=== PATIENT | female | born 1990 | race Caucasian/White ===

== ENCOUNTER 2016-03-07 10:38 | Inpatient (IN) | payer OTHER ==
[2016-03-07 11:08] VITALS: BMI 32.6
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
[2016-03-07] MEDS ORDERED: hydrOXYzine PAMOATE 50 MG CAPSULE (FP) PO PRN (14:33)
[2016-03-07] MEDS ORDERED: MAGNESIUM HYDROX 2400MG/30ML ORAL SUSPENSION 30 ML CUP PO PRN (14:33)
[2016-03-07] MEDS ORDERED: guaiFENesin/D-METHORPHAN HB 10 ML UNIT-DOSE CUPS PO PRN (14:33)
[2016-03-07] MEDS ORDERED: IBUPROFEN 400 MG TABLET (FP) PO PRN (14:33)
[2016-03-07] MEDS ORDERED: diphenhydrAMINE HCL 50 MG CAPSULE PO PRN (14:33)
[2016-03-07] MEDS ORDERED: ACETAMINOPHEN 325 MG TABLET (FP) PO PRN (14:33)
[2016-03-07] MEDS ORDERED: LOPERAMIDE HCL 2 MG CAPSULE PO PRN (14:33)
[2016-03-07] MEDS ORDERED: MENTHOL/PHENOL 1 EACH UD MM PRN (14:33)
[2016-03-07] MEDS ORDERED: MAG HYDROX/AL HYDROX/SIMETH 30 ML UNIT-DOSE CUP PO PRN (14:33)
[2016-03-07] MEDS ORDERED: MAGNESIUM CITRATE 300 ML BOTTLE PO PRN (14:33)
[2016-03-07] MEDS ORDERED: P-EPHED 60MG/TRIPROLIDI 2.5MG TABLET PO PRN (14:33)
[2016-03-07] MEDS ORDERED: diazePAM 5 MG TABLET PO ONE (14:48)
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
[2016-03-07 17:34] LABS: URINE APPEARANCE CLOUDY; URINE BILIRUBIN NEGATIVE (NEGATIVE); URINE COLOR DKYELLOW; URINE GLUCOSE (UA) NEGATIVE (NEGATIVE); URINE KETONE TRACE (NEGATIVE); URINE NITRITE POSITIVE (NEGATIVE); URINE PROTEIN NEGATIVE (NEGATIVE); URINE UROBILINOGEN NEGATIVE E.U./dl (0.2-1.0)
[2016-03-07 17:35] LABS: URINE BLOOD 1+ (NEGATIVE); URINE LEUK ESTERASE 3+ (NEGATIVE)
[2016-03-07 17:41] LABS: URINE BACTERIA MANY /hpf (NONE SEEN); URINE RBC 5 /hpf (0-3); URINE WBC 24 /hpf (3-5); YEAST MANY
[2016-03-07 19:12] LABS: HIV 1 & 2 AB NEGATIVE; HIV 1 AGp24 NEGATIVE
[2016-03-07] MEDS: diazePAM 5 MG TABLET PO PRN (19:56)
[2016-03-07] MEDS: THIAMINE HCL 100 MG TABLET (FP) PO SCH (22:39)
[2016-03-07] MEDS: diazePAM 5 MG TABLET PO SCH (22:39)
[2016-03-07] MEDS: GABAPENTIN 400 MG CAPSULE (FP) PO SCH (22:39)
[2016-03-07] MEDS: MIRTAZAPINE 15 MG TABLET (FP) PO SCH (22:39)
[2016-03-07] MEDS: busPIRone HCL 10 MG TABLET (FP) PO SCH (22:39)
[2016-03-08] MEDS: busPIRone HCL 10 MG TABLET (FP) PO SCH ×3 (06:51→22:44)
[2016-03-08] MEDS: GABAPENTIN 400 MG CAPSULE (FP) PO SCH ×3 (06:51→22:44)
[2016-03-08] MEDS: diazePAM 5 MG TABLET PO SCH ×3 (06:51→22:45)
[2016-03-08] MEDS ORDERED: METHADONE HCL 10 MG TABLET PO ONE (08:52)
[2016-03-08] MEDS ORDERED: METHADONE 120 MG, METHADONE 30 MG PO ONE (09:24)
[2016-03-08] MEDS ORDERED: METHADONE HCL 10 MG TABLET ONE (09:52)
[2016-03-08] MEDS ORDERED: METHADONE HCL 40 MG DISPERSABLE TABLET ONE (09:52)
[2016-03-08 10:12] LABS: MCH 29.2 pg (25.7-33.7); MEAN CELL VOLUME 88.5 fl (80-96); MEAN PLT VOLUME 11.3 fl (7.5-11.1); PLATELET COUNT 194 K/MM3 (134-434); RDW 13.9 % (11.6-15.6); WHITE BLOOD COUNT 6.6 K/mm3 (4.0-10.0)
[2016-03-08 10:24] LABS: ALBUMIN 3.8 g/dl (3.4-5.0); ANION GAP 8 (8-16); BILIRUBIN,TOTAL 0.1 mg/dL (0.2-1.0); CO2 29 mmol/L (21-32); GLUCOSE,RANDOM 141 mg/dL (74-106); SGOT/AST 71 U/L (15-37); SGPT/ALT 93 U/L (12-78); TOT PROT 7.3 g/dl (6.4-8.2)
[2016-03-08 10:27] LABS: ALK PHOS 173 U/L (45-117); CALCIUM 9.1 mg/dL (8.5-10.1); CREATININE 0.8 mg/dL (0.55-1.02)
[2016-03-08] MEDS: ARIPiprazole 2 MG TABLET PO SCH (11:06)
[2016-03-08] MEDS: ESCITALOPRAM OXALATE 20 MG TABLET (FP) PO SCH (11:07)
[2016-03-08] MEDS: PRENATAL VITAMINS W/ FOLIC ACID TABLET (FP) PO SCH (11:07)
--- NOTE | 2016-03-08 11:58 | PN ---
[facility] CIWA - CIWA Score Nausea/Vomitin-No Nausea/No Vomiting Muscle Tremors: 4-Moderate,w/Arms Extend Anxiety: 3 Agitation: 4-Moderately Restless Paroxysmal Sweats: 3 Orientation: 0-Oriented Tacttile Disturbances: 0-None Auditory Disturbances: 0-None Visual Disturbances: 0-None Headache: 1-Very Mild CIWA-Ar Total Score: 15 BHS Progress Note (SOAP) Subjective: shakes sweats body aches agitation anxiety interrupted sleep Objective: 03/08/16 12:02 Vital Signs Temperature 97.3 F L 03/08/16 10:15 Pulse Rate 85 03/08/16 12:01 Respiratory Rate 20 03/08/16 10:15 Blood Pressure 108/58 03/08/16 12:01 O2 Sat by Pulse Oximetry (%) Laboratory Tests 03/07/16 03/07/16 03/08/16 15:20 16:45 06:00 WBC 6.6 RBC 4.52 Hgb 13.2 Hct 40.0 MCV 88.5 MCHC 33.0 RDW 13.9 Plt Count 194 D MPV 11.3 H Sodium Potassium Chloride Carbon Dioxide Anion Gap BUN Creatinine Creat Clearance w eGFR Random Glucose Calcium Total Bilirubin AST ALT Alkaline Phosphatase Total Protein Albumin Urine Color Dkyellow Urine Appearance Cloudy Urine pH 6.0 Ur Specific [place] 1.015 Urine Protein Negative Urine Glucose (UA) Negative Urine Ketones Trace H Urine Blood 1+ H Urine Nitrite Positive Urine Bilirubin Negative Urine Urobilinogen Negative Ur Leukocyte Esterase 3+ H Urine RBC 5 Urine WBC 24 Ur Epithelial Cells Many Urine Bacteria Many Urine Yeast Many HIV 1&2 Antibody Screen Negative HIV P24 Antigen Negative 03/08/16 06:00 WBC RBC Hgb Hct MCV MCHC RDW Plt Count MPV Sodium 137 Potassium 3.9 Chloride 100 Carbon Dioxide 29 Anion Gap 8 BUN 13 D Creatinine 0.8 Creat Clearance w eGFR > 60 Random Glucose 141 H D Calcium 9.1 Total Bilirubin 0.1 L D AST 71 H ALT 93 H D Alkaline Phosphatase 173 H D Total Protein 7.3 Albumin 3.8 Urine Color Urine Appearance Urine pH Ur Specific [place] Urine Protein Urine Glucose (UA) Urine Ketones Urine Blood Urine Nitrite Urine Bilirubin Urine Urobilinogen Ur Leukocyte Esterase Urine RBC Urine WBC Ur Epithelial Cells Urine Bacteria Urine Yeast HIV 1&2 Antibody Screen HIV P24 Antigen awake/alert ambulating no acute distress Assessment: 03/08/16 12:03 withdrawal sx Plan: continue detox increase fluids labs pending
[2016-03-08] MEDS: diazePAM 5 MG TABLET PO PRN ×2 (12:45→19:04)
[2016-03-08] MEDS: MIRTAZAPINE 15 MG TABLET (FP) PO SCH (22:44)
[2016-03-08] MEDS: THIAMINE HCL 100 MG TABLET (FP) PO SCH (22:45)
[2016-03-09] MEDS ORDERED: METHADONE HCL 40 MG DISPERSABLE TABLET ONE (05:11)
[2016-03-09] MEDS ORDERED: METHADONE HCL 10 MG TABLET ONE (05:11)
[2016-03-09] MEDS ORDERED: METHADONE HCL 10 MG TABLET PO SCH (06:00)
[2016-03-09] MEDS: GABAPENTIN 400 MG CAPSULE (FP) PO SCH ×3 (06:04→22:29)
[2016-03-09] MEDS: busPIRone HCL 10 MG TABLET (FP) PO SCH ×3 (06:04→22:29)
[2016-03-09] MEDS: METHADONE 120 MG, METHADONE 30 MG PO SCH (06:04)
[2016-03-09] MEDS: diazePAM 5 MG TABLET PO PRN ×3 (06:08→19:07)
[2016-03-09] MEDS: ARIPiprazole 2 MG TABLET PO SCH (10:48)
[2016-03-09] MEDS: diazePAM 5 MG TABLET PO SCH ×2 (10:48→22:29)
[2016-03-09] MEDS: PRENATAL VITAMINS W/ FOLIC ACID TABLET (FP) PO SCH (10:48)
[2016-03-09] MEDS: ESCITALOPRAM OXALATE 20 MG TABLET (FP) PO SCH (10:49)
[2016-03-09 11:07] LABS: URINE APPEARANCE CLOUDY; URINE BILIRUBIN NEGATIVE (NEGATIVE); URINE COLOR YELLOW; URINE GLUCOSE (UA) NEGATIVE (NEGATIVE); URINE KETONE NEGATIVE (NEGATIVE); URINE NITRITE NEGATIVE (NEGATIVE); URINE PROTEIN NEGATIVE (NEGATIVE); URINE UROBILINOGEN NEGATIVE E.U./dl (0.2-1.0)
--- NOTE | 2016-03-09 11:19 | PN ---
[facility] CIWA - CIWA Score Nausea/Vomitin-Mild Nausea/No Vomiting Muscle Tremors: 3 Anxiety: 3 Agitation: 2 Paroxysmal Sweats: 1-Minimal Palms Moist Orientation: 0-Oriented Tacttile Disturbances: 0-None Auditory Disturbances: 1-Very Mild Visual Disturbances: 1-Very Mild Sensitivity Headache: 2-Mild CIWA-Ar Total Score: 14 S Progress Note (SOAP) Objective: 03/09/16 11:18 Laboratory Tests 03/07/16 03/07/16 03/08/16 15:20 16:45 06:00 WBC 6.6 RBC 4.52 Hgb 13.2 Hct 40.0 MCV 88.5 MCHC 33.0 RDW 13.9 Plt Count 194 D MPV 11.3 H Sodium Potassium Chloride Carbon Dioxide Anion Gap BUN Creatinine Creat Clearance w eGFR Random Glucose Calcium Total Bilirubin AST ALT Alkaline Phosphatase Total Protein Albumin Urine Color Dkyellow Urine Appearance Cloudy Urine pH 6.0 Ur Specific [place] 1.015 Urine Protein Negative Urine Glucose (UA) Negative Urine Ketones Trace H Urine Blood 1+ H Urine Nitrite Positive Urine Bilirubin Negative Urine Urobilinogen Negative Ur Leukocyte Esterase 3+ H Urine RBC 5 Urine WBC 24 Ur Epithelial Cells Many Urine Bacteria Many Urine Yeast Many RPR Titer HIV 1&2 Antibody Screen Negative HIV P24 Antigen Negative 03/08/16 03/08/16 06:00 06:00 WBC RBC Hgb Hct MCV MCHC RDW Plt Count MPV Sodium 137 Potassium 3.9 Chloride 100 Carbon Dioxide 29 Anion Gap 8 BUN 13 D Creatinine 0.8 Creat Clearance w eGFR > 60 Random Glucose 141 H D Calcium 9.1 Total Bilirubin 0.1 L D AST 71 H ALT 93 H D Alkaline Phosphatase 173 H D Total Protein 7.3 Albumin 3.8 Urine Color Urine Appearance Urine pH Ur Specific [place] Urine Protein Urine Glucose (UA) Urine Ketones Urine Blood Urine Nitrite Urine Bilirubin Urine Urobilinogen Ur Leukocyte Esterase Urine RBC Urine WBC Ur Epithelial Cells Urine Bacteria Urine Yeast RPR Titer Nonreactive HIV 1&2 Antibody Screen HIV P24 Antigen Vital Signs - 24 hr 03/08/16 03/08/16 03/08/16 12:01 14:59 18:15 Temperature 98 F 98.1 F Pulse Rate 85 79 61 Respiratory 16 18 Rate Blood Pressure 108/58 103/62 108/56 03/08/16 03/09/16 03/09/16 22:40 00:30 03:30 Temperature 97.9 F Pulse Rate 77 Respiratory 20 18 18 Rate Blood Pressure 99/56 03/09/16 03/09/16 06:00 10:30 Temperature 98.2 F 98.4 F Pulse Rate 67 81 Respiratory 18 18 Rate Blood Pressure 102/62 118/69 Assessment: 03/09/16 11:18 ongoing withdrawal Plan: continue detox protocol
[2016-03-09 11:31] LABS: URINE BLOOD 1+ (NEGATIVE); URINE LEUK ESTERASE 3+ (NEGATIVE)
[2016-03-09 11:46] LABS: URINE BACTERIA MANY /hpf (NONE SEEN); URINE MUCUS RARE; URINE RBC 5 /hpf (0-3); URINE WBC 51 /hpf (3-5)
[2016-03-09] MEDS: MIRTAZAPINE 15 MG TABLET (FP) PO SCH (22:29)
[2016-03-09] MEDS: THIAMINE HCL 100 MG TABLET (FP) PO SCH (22:29)
[2016-03-10] MEDS ORDERED: METHADONE HCL 10 MG TABLET ONE (05:23)
[2016-03-10] MEDS ORDERED: METHADONE HCL 40 MG DISPERSABLE TABLET ONE (05:24)
[2016-03-10] MEDS: METHADONE 120 MG, METHADONE 30 MG PO SCH (06:06)
[2016-03-10] MEDS: diazePAM 5 MG TABLET PO PRN ×2 (06:06→12:47)
[2016-03-10] MEDS: GABAPENTIN 400 MG CAPSULE (FP) PO SCH ×3 (06:06→22:47)
[2016-03-10] MEDS: busPIRone HCL 10 MG TABLET (FP) PO SCH ×3 (06:06→22:47)
[2016-03-10] MEDS: PRENATAL VITAMINS W/ FOLIC ACID TABLET (FP) PO SCH (10:53)
[2016-03-10] MEDS: diazePAM 5 MG TABLET PO SCH ×2 (10:53→22:46)
[2016-03-10] MEDS: ESCITALOPRAM OXALATE 20 MG TABLET (FP) PO SCH (10:53)
[2016-03-10] MEDS: ARIPiprazole 2 MG TABLET PO SCH (10:53)
--- NOTE | 2016-03-10 13:43 | PN ---
S Progress Note (SOAP) Subjective: ALERT,IRRITABLE,ANXIOUS,INTERRUPTED SLEEP,,TREMOR Objective: 03/10/16 13:40 Vital Signs Temperature 98.4 F 03/10/16 09:49 Pulse Rate 83 03/10/16 09:49 Respiratory Rate 18 03/10/16 09:49 Blood Pressure 128/66 03/10/16 09:49 O2 Sat by Pulse Oximetry (%) EKG SINUS BRADYCARDIA 59/MIN NO CHEST PAIN,NO SOB,NO DIZZINESS Assessment: 03/10/16 13:42 WITHDRAWAL SYMPTOM Plan: CONTINUE DETOX,DISCHARGE IN AM
[2016-03-10] MEDS: MIRTAZAPINE 15 MG TABLET (FP) PO SCH (22:47)
[2016-03-10] MEDS: THIAMINE HCL 100 MG TABLET (FP) PO SCH (22:47)
[2016-03-11] MEDS ORDERED: METHADONE HCL 10 MG TABLET ONE (03:39)
[2016-03-11] MEDS ORDERED: METHADONE HCL 40 MG DISPERSABLE TABLET ONE (03:40)
[2016-03-11] MEDS: GABAPENTIN 400 MG CAPSULE (FP) PO SCH (05:59)
[2016-03-11] MEDS: busPIRone HCL 10 MG TABLET (FP) PO SCH (05:59)
[2016-03-11] MEDS: METHADONE 120 MG, METHADONE 30 MG PO SCH (05:59)
--- NOTE | 2016-03-11 09:22 | PN ---
S Progress Note (SOAP) Subjective: ALERT,NO COMPLAINT Objective: 03/11/16 09:21 Vital Signs Temperature 97.1 F L 03/11/16 07:29 Pulse Rate 84 03/11/16 07:29 Respiratory Rate 20 03/11/16 07:29 Blood Pressure 124/77 03/11/16 07:29 O2 Sat by Pulse Oximetry (%) Assessment: 03/11/16 09:21 DETOX COMPLETED,NO WITHDRAWAL SYMPTOM Plan: DISCHARGE TODAY,FOLLOW UP WITH AFTER CARE PROGRAM ARRANGEMENT
--- NOTE | 2016-03-11 09:26 | DS ---
[facility] Detox Discharge Summary Admission Date: 03/07/16 Discharge Date: 03/11/16 - History Present History: Sedative Dependence, MMTP Pertinent Past History: NICOTINE DEPENDENCE HEPATITIS C BIPOLAR DISORDER - Physical Exam Results Vital Signs: Vital Signs Temperature 97.1 F L 03/11/16 07:29 Pulse Rate 84 03/11/16 07:29 Respiratory Rate 20 03/11/16 07:29 Blood Pressure 124/77 03/11/16 07:29 O2 Sat by Pulse Oximetry (%) Pertinent Admission Physical Exam Findings: WITHDRAWAL SYMPTOM - Treatment Hospital Course: Detox Protocol Followed, Detoxed Safely, Responded well, Discharged Condition Good - Medication Discharge Medications: Ambulatory Orders Gabapentin [Neurontin -] 400 mg PO Q8H 01/03/16 Buspirone HCl [Buspar -] 10 mg PO TID #90 tablet 01/04/16 Escitalopram Oxalate [Lexapro -] 20 mg PO DAILY #30 tablet 01/04/16 Mirtazapine [Remeron -] 15 mg PO HS #30 tablet 01/04/16 Buspirone HCl [Buspar -] 10 mg PO TID #60 tablet 03/07/16 Escitalopram Oxalate [Lexapro -] 20 mg PO DAILY #30 tablet 03/07/16 Gabapentin [Neurontin -] 400 mg PO TID #60 capsule 03/07/16 Mirtazapine [Remeron -] 15 mg PO HS #30 tablet 03/07/16 - Diagnosis (1) Bipolar disorder Current Visit: Yes Status: Chronic (2) Methadone maintenance therapy patient Current Visit: No Status: Chronic (3) Nicotine dependence Current Visit: Yes Status: Acute Qualifiers: Nicotine product type: cigarettes Substance use status: uncomplicated Qualified Code(s): F17.210 - Nicotine dependence, cigarettes, uncomplicated (4) Sedative, hypnotic or anxiolytic dependence, uncomplicated Current Visit: Yes Status: Acute (5) Hepatitis C Current Visit: Yes Status: Chronic
[2016-03-11] MEDS: PRENATAL VITAMINS W/ FOLIC ACID TABLET (FP) PO SCH (09:47)
[2016-03-11] MEDS: ESCITALOPRAM OXALATE 20 MG TABLET (FP) PO SCH (09:48)
[2016-03-11] MEDS: ARIPiprazole 2 MG TABLET PO SCH (09:48)
[2016-03-11] MEDS ORDERED: diazePAM 5 MG TABLET PO SCH (10:00)
[2016-03-11 10:39] VITALS: BP 118/69; PULSE 81; TEMP 98.4
--- NOTE | 2016-03-15 16:34 | EKG ---
Test Reason : Blood Pressure : / mmHG Vent. Rate : 070 BPM Atrial Rate : 070 BPM P-R Int : 184 ms QRS Dur : 082 ms QT Int : 440 ms P-R-T Axes : 048 062 029 degrees QTc Int : 475 ms NORMAL SINUS RHYTHM NONSPECIFIC T WAVE ABNORMALITY PROLONGED QT ABNORMAL ECG NO PREVIOUS ECGS AVAILABLE Confirmed by JONAS HEBERT, JING ([id number]) on 03/15/2016 4:33:31 PM Referred By: Confirmed By:JING MCDANIEL MD
== END 2016-03-11 10:01 | disposition home or self-care (01) | DRG 773 ==
LOC: YASAS 10:38 → Y6N 14:45
PROVIDERS: ADMIT Internal Medicine Addiction Medicine; ATTEND Internal Medicine Addiction Medicine
PROC: HZ2ZZZZ Detoxification Services for Substance Abuse Treatment (ICD-10-PCS; principal; 2016-03-07)
DX: F13.230 Sedative, hypnotic or anxiolytic dependence with withdrawal, uncomplicated (principal); F11.20 Opioid dependence, uncomplicated; F17.210 Nicotine dependence, cigarettes, uncomplicated; F31.9 Bipolar disorder, unspecified; B18.2 Chronic viral hepatitis C; Z86.69 Personal history of other diseases of the nervous system and sense organs
CPT/HCPCS: 36415; 80053; 81003; 81015; 85027; 86593; 87389; 93005; 93010

== ENCOUNTER 2016-03-14 12:09 | Inpatient (IN) | payer OTHER ==
[2016-03-14 12:57] VITALS: BMI 34.0
--- NOTE | 2016-03-14 13:56 | HP ---
[facility] Rehab Assess/Revision - Admission History Admitted to Rehab [facility]: [facility] Date of Admission to Rehab: 03/14/16 - Vital signs Vital Signs: Vital Signs Period Temp Pulse Resp BP Sys/Matute Pulse Ox Last 24 Hr 99.7 F 99 18 119/73 - Findings Detox History & Physical reviewed: Yes Concur with findings: Yes Comments/Additional Findings: for rehab as protocol
--- NOTE | 2016-03-14 15:07 | HP ---
Psychiatrist Admission - Data Date of interview: 03/14/16 Admission source: [facility] Identifying data: This is the first admission to [address] [place] [address] for this 26 years old H single female mother of 2 (9yo and 1 yo) .Oldest son resides with his father and 1 yo son resides with his father and father's sister(CPS case).Patient is homeless,supported by [place]. Medical History: SEizure disorder since childhood,Hep C. Psychiatric History: Long and extensive psychiatric history since 13 years old.She reports about 17-20 psychiatric admissions.Patient was dx with Bipolar disorder while in .Most recent admission was about 1 years ago to [facility] in .Follow up by psychiatrist at [facility] at [facility] in [place].Meds:Remeron 15 mg po hs,Lexapro 20 mg po daily,Neurontin 400 mg po tid ,Buspar 10 mg po tid .Consider to start Abilify 2 mg po daily (as discussed with her psychiatrist ).Restarted above medications prescribed by while in detox on last week. Physical/Sexual Abuse/Trauma History: not willing to discuss Vital Signs: Vital Signs - 24 hr 03/14/16 12:54 Temperature 99.7 F H Pulse Rate 99 H Respiratory 18 Rate Blood Pressure 119/73 Allergies/Adverse Reactions: Allergies Allergy/AdvReac Type Severity Reaction Status Date / Time No Known Allergies Allergy Verified 03/14/16 13:57 Date of last physical exam: 03/14/16 Concur with the findings of this exam: Yes - Substance Abuse/Tx History Hx Alcohol Use: Yes (socially) Hx Substance Use: Yes (using heroin since very young age,on MMTP,Xanax since 14 yo,Klonopin since ) Substance Use Type: Heroin, Tranquilizers Hx Substance Use Treatment: Yes - Admission Criteria Previous failed treatment: Yes Poor recovery environment: Yes Comorbidities: Yes Lacks judgement: Yes Mental Status Exam - Mental Status Exam Alert and Oriented to: Time, Place, Person Cognitive Function: Grossly Intact Patient Appearance: Unkempt Mood: Sad, Anxious, Apprehensive Affect: Labile Patient Behavior: Cooperative Speech Pattern: Clear Voice Loudness: Normal Thought Process: Goal Oriented Thought Disorder: Not Present Hallucinations: Denies Suicidal Ideation: Denies Homicidal Ideation: Denies Insight/Judgement: Fair Sleep: Difficulty falling asleep Appetite: Good Muscle strength/Tone: Normal Gait/Station: Normal Psychiatric Findings - Problem List ([place] 1, 2,3) (1) Nicotine dependence Status: Chronic Qualifiers: (2) Opioid dependence on agonist therapy Status: Chronic (3) Sedative, hypnotic or anxiolytic dependence, uncomplicated Status: Chronic (4) Bipolar 1 disorder Status: Chronic (5) Hepatitis C Status: Chronic (6) Methadone maintenance therapy patient Status: Chronic - Initial Treatment Plan Initial Treatment Plan: Continue current medications as per plan.Start Abilify 2 mg po daily.Will monitor progress.
[2016-03-14] MEDS: ARIPiprazole 2 MG TABLET PO SCH (17:36)
[2016-03-14] MEDS ORDERED: P-EPHED 60MG/TRIPROLIDI 2.5MG TABLET PO PRN (18:01)
[2016-03-14] MEDS ORDERED: ACETAMINOPHEN 325 MG TABLET (FP) PO PRN (18:01)
[2016-03-14] MEDS ORDERED: diphenhydrAMINE HCL 50 MG CAPSULE PO PRN (18:01)
[2016-03-14] MEDS ORDERED: MAGNESIUM CITRATE 300 ML BOTTLE PO PRN (18:01)
[2016-03-14] MEDS ORDERED: NICOTINE POLACRILEX 2 MG GUM BUC PRN (18:01)
[2016-03-14] MEDS ORDERED: MENTHOL/PHENOL 1 EACH UD MM PRN (18:01)
[2016-03-14] MEDS ORDERED: MAGNESIUM HYDROX 2400MG/30ML ORAL SUSPENSION 30 ML CUP PO PRN (18:01)
[2016-03-14] MEDS ORDERED: IBUPROFEN 400 MG TABLET (FP) PO PRN (18:01)
[2016-03-14] MEDS ORDERED: guaiFENesin/D-METHORPHAN HB 10 ML UNIT-DOSE CUPS PO PRN (18:01)
[2016-03-14] MEDS ORDERED: NICOTINE 14 MG/24 HOURS TOPICAL PATCH TD PRN (18:01)
[2016-03-14] MEDS ORDERED: LOPERAMIDE HCL 2 MG CAPSULE PO PRN (18:01)
[2016-03-14] MEDS ORDERED: MAG HYDROX/AL HYDROX/SIMETH 30 ML UNIT-DOSE CUP PO PRN (18:01)
[2016-03-14] MEDS: THIAMINE HCL 100 MG TABLET (FP) PO SCH (21:27)
[2016-03-14] MEDS: MIRTAZAPINE 15 MG TABLET (FP) PO SCH (21:27)
[2016-03-14] MEDS: GABAPENTIN 400 MG CAPSULE (FP) PO SCH (21:27)
[2016-03-14] MEDS: busPIRone HCL 10 MG TABLET (FP) PO SCH (21:27)
[2016-03-15] MEDS: busPIRone HCL 10 MG TABLET (FP) PO SCH ×3 (06:37→21:51)
[2016-03-15] MEDS: GABAPENTIN 400 MG CAPSULE (FP) PO SCH ×3 (06:37→21:51)
[2016-03-15] MEDS ORDERED: PT OWN MED DRAWER 7, Y5N ONE (08:30)
[2016-03-15] MEDS ORDERED: METHADONE HCL 10 MG TABLET PO ONE (08:42)
[2016-03-15] MEDS ORDERED: METHADONE 120 MG, METHADONE 30 MG PO ONE (08:50)
[2016-03-15] MEDS ORDERED: METHADONE HCL 10 MG TABLET ONE (09:25)
[2016-03-15] MEDS ORDERED: METHADONE HCL 40 MG DISPERSABLE TABLET ONE (09:26)
[2016-03-15] MEDS: ARIPiprazole 2 MG TABLET PO SCH (09:30)
[2016-03-15] MEDS: ESCITALOPRAM OXALATE 20 MG TABLET (FP) PO SCH (09:30)
[2016-03-15] MEDS: PRENATAL VITAMINS W/ FOLIC ACID TABLET (FP) PO SCH (09:30)
[2016-03-15] MEDS: THIAMINE HCL 100 MG TABLET (FP) PO SCH (21:51)
[2016-03-15] MEDS: MIRTAZAPINE 15 MG TABLET (FP) PO SCH (21:51)
[2016-03-16] MEDS ORDERED: METHADONE HCL 40 MG DISPERSABLE TABLET PO SCH (06:00)
[2016-03-16] MEDS ORDERED: METHADONE HCL 10 MG TABLET ONE (06:13)
[2016-03-16] MEDS ORDERED: METHADONE HCL 40 MG DISPERSABLE TABLET ONE (06:14)
[2016-03-16] MEDS: busPIRone HCL 10 MG TABLET (FP) PO SCH ×3 (06:50→21:38)
[2016-03-16] MEDS: METHADONE 120 MG, METHADONE 30 MG PO SCH (06:51)
[2016-03-16] MEDS: GABAPENTIN 400 MG CAPSULE (FP) PO SCH ×3 (07:00→21:38)
[2016-03-16] MEDS: ESCITALOPRAM OXALATE 20 MG TABLET (FP) PO SCH (10:34)
[2016-03-16] MEDS: PRENATAL VITAMINS W/ FOLIC ACID TABLET (FP) PO SCH (10:35)
[2016-03-16] MEDS: ARIPiprazole 2 MG TABLET PO SCH (10:35)
[2016-03-16] MEDS: MIRTAZAPINE 15 MG TABLET (FP) PO SCH (21:38)
[2016-03-16] MEDS: THIAMINE HCL 100 MG TABLET (FP) PO SCH (21:38)
[2016-03-17] MEDS ORDERED: METHADONE HCL 40 MG DISPERSABLE TABLET ONE (03:08)
[2016-03-17] MEDS ORDERED: METHADONE HCL 10 MG TABLET ONE (03:08)
[2016-03-17] MEDS: METHADONE 120 MG, METHADONE 30 MG PO SCH (06:16)
[2016-03-17] MEDS: busPIRone HCL 10 MG TABLET (FP) PO SCH ×3 (06:17→21:28)
[2016-03-17] MEDS: GABAPENTIN 400 MG CAPSULE (FP) PO SCH ×3 (06:17→21:28)
[2016-03-17] MEDS: ESCITALOPRAM OXALATE 20 MG TABLET (FP) PO SCH (10:08)
[2016-03-17] MEDS: PRENATAL VITAMINS W/ FOLIC ACID TABLET (FP) PO SCH (10:08)
[2016-03-17] MEDS: ARIPiprazole 2 MG TABLET PO SCH (10:08)
[2016-03-17] MEDS: THIAMINE HCL 100 MG TABLET (FP) PO SCH (21:28)
[2016-03-17] MEDS: MIRTAZAPINE 15 MG TABLET (FP) PO SCH (21:28)
[2016-03-18] MEDS ORDERED: METHADONE HCL 40 MG DISPERSABLE TABLET ONE (03:23)
[2016-03-18] MEDS ORDERED: METHADONE HCL 10 MG TABLET ONE (03:23)
[2016-03-18] MEDS: METHADONE 120 MG, METHADONE 30 MG PO SCH (06:25)
[2016-03-18] MEDS: busPIRone HCL 10 MG TABLET (FP) PO SCH ×3 (06:26→21:15)
[2016-03-18] MEDS: GABAPENTIN 400 MG CAPSULE (FP) PO SCH ×3 (06:26→21:15)
[2016-03-18] MEDS: ESCITALOPRAM OXALATE 20 MG TABLET (FP) PO SCH (10:09)
[2016-03-18] MEDS: PRENATAL VITAMINS W/ FOLIC ACID TABLET (FP) PO SCH (10:09)
[2016-03-18] MEDS: ARIPiprazole 2 MG TABLET PO SCH (10:09)
[2016-03-18] MEDS: THIAMINE HCL 100 MG TABLET (FP) PO SCH (21:15)
[2016-03-18] MEDS: MIRTAZAPINE 15 MG TABLET (FP) PO SCH (21:15)
[2016-03-19] MEDS ORDERED: METHADONE HCL 10 MG TABLET ONE (03:15)
[2016-03-19] MEDS ORDERED: METHADONE HCL 40 MG DISPERSABLE TABLET ONE (03:16)
[2016-03-19] MEDS: METHADONE 120 MG, METHADONE 30 MG PO SCH (06:15)
[2016-03-19] MEDS: busPIRone HCL 10 MG TABLET (FP) PO SCH ×3 (06:16→21:40)
[2016-03-19] MEDS: GABAPENTIN 400 MG CAPSULE (FP) PO SCH ×3 (06:16→21:40)
[2016-03-19] MEDS: ESCITALOPRAM OXALATE 20 MG TABLET (FP) PO SCH (10:19)
[2016-03-19] MEDS: PRENATAL VITAMINS W/ FOLIC ACID TABLET (FP) PO SCH (10:19)
[2016-03-19] MEDS: ARIPiprazole 2 MG TABLET PO SCH (10:20)
[2016-03-19] MEDS ORDERED: PT OWN MED DRAWER 7, Y5N ONE (10:20)
[2016-03-19] MEDS: MIRTAZAPINE 15 MG TABLET (FP) PO SCH (21:40)
[2016-03-19] MEDS: THIAMINE HCL 100 MG TABLET (FP) PO SCH (21:41)
[2016-03-20] MEDS ORDERED: METHADONE HCL 10 MG TABLET ONE (05:57)
[2016-03-20] MEDS ORDERED: METHADONE HCL 40 MG DISPERSABLE TABLET ONE (05:57)
[2016-03-20] MEDS: busPIRone HCL 10 MG TABLET (FP) PO SCH ×3 (06:30→23:12)
[2016-03-20] MEDS: METHADONE 120 MG, METHADONE 30 MG PO SCH (06:31)
[2016-03-20] MEDS: GABAPENTIN 400 MG CAPSULE (FP) PO SCH ×3 (06:33→23:12)
[2016-03-20] MEDS ORDERED: PT OWN MED DRAWER 7, Y5N ONE (08:34)
[2016-03-20] MEDS: ESCITALOPRAM OXALATE 20 MG TABLET (FP) PO SCH (10:25)
[2016-03-20] MEDS: PRENATAL VITAMINS W/ FOLIC ACID TABLET (FP) PO SCH (10:25)
[2016-03-20] MEDS: ARIPiprazole 2 MG TABLET PO SCH (10:25)
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
[2016-03-20] MEDS: THIAMINE HCL 100 MG TABLET (FP) PO SCH (23:13)
[2016-03-20] MEDS: MIRTAZAPINE 15 MG TABLET (FP) PO SCH (23:13)
[2016-03-20 23:33] VITALS: BP 119/87; PULSE 116; TEMP 98
== END 2016-03-20 22:05 | disposition home or self-care (01) | DRG 772 ==
LOC: YASAS 12:09 → Y3E 14:19
PROVIDERS: ADMIT Psychiatry & Neurology Psychiatry; ATTEND Psychiatry & Neurology Psychiatry
PROC: HZ42ZZZ Group Counseling for Substance Abuse Treatment, Cognitive-Behavioral (ICD-10-PCS; principal; 2016-03-14)
DX: F13.20 Sedative, hypnotic or anxiolytic dependence, uncomplicated (principal); F11.20 Opioid dependence, uncomplicated; F17.210 Nicotine dependence, cigarettes, uncomplicated; F31.89 Other bipolar disorder; B18.2 Chronic viral hepatitis C; Z86.69 Personal history of other diseases of the nervous system and sense organs; Y04.0XXA Assault by unarmed brawl or fight, initial encounter; Y93.89 Activity, other specified; Y92.230 Patient room in hospital as the place of occurrence of the external cause